=== PATIENT | female | born 1965 | race Caucasian/White ===

== ENCOUNTER 2022-08-31 16:07 | Emergency (ER) | payer OTHER ==
[~2022-08-31] VITALS: Ht 167.6 cm; Wt 72.6 kg
== END 2022-08-31 20:00 | disposition home or self-care (01) ==
LOC: ER 16:07
DX: S81.011A Laceration without foreign body, right knee, initial encounter (principal); X58.XXXA Exposure to other specified factors, initial encounter; Y93.9 Activity, unspecified; Y92.9 Unspecified place or not applicable